=== PATIENT | female | born 2000 | race Caucasian/White ===

== ENCOUNTER → 2023-08-09 11:13 | Outpatient (REF) | payer OTHER, SELFPAY ==
[2023-08-16 11:59] LABS: 24 Hour Urine Total Volume Random mL; Creatinine, Urine per Volume 103 mg/dL; Iodine, Urine 66.2 ug/L (26.0-705.0); Iodine/Creatinine Ratio 64.3 ug/g CRT (35.0-540.0); Urine Collection Length Random hr
== END ==
LOC: HWLAB 11:13
PROVIDERS: ATTENDING PHYSICIAN Surgery; FAMILY PHYSICIAN Internal Medicine
DX: N63.21 Unspecified lump in the left breast, upper outer quadrant (principal)
CPT/HCPCS: 83018

== ENCOUNTER → 2023-08-21 08:45 | Outpatient (REF) | payer OTHER, SELFPAY | LOC: CLAB 08:45 | PROVIDERS: ATTENDING PHYSICIAN Surgery | DX: N63.21 Unspecified lump in the left breast, upper outer quadrant (principal) | CPT/HCPCS: 88305; 88307; 88342; 88360 ==

== ENCOUNTER → 2023-09-20 13:49 | Outpatient (REF) | payer OTHER, SELFPAY | LOC: WDC 13:49 | PROVIDERS: ATTENDING PHYSICIAN Surgery; FAMILY PHYSICIAN Internal Medicine | DX: N63.10 Unspecified lump in the right breast, unspecified quadrant (principal); N63.11 Unspecified lump in the right breast, upper outer quadrant | CPT/HCPCS: 76642 ==

== ENCOUNTER → 2023-10-29 07:44 | Outpatient (REF) | payer OTHER, SELFPAY | LOC: MRI 3T 07:44 | PROVIDERS: ATTENDING PHYSICIAN Surgery; FAMILY PHYSICIAN Internal Medicine | DX: D48.60 Neoplasm of uncertain behavior of unspecified breast (principal) | CPT/HCPCS: 77049; A9585 ==

== ENCOUNTER → 2023-12-05 14:49 | Outpatient (REF) | payer OTHER, SELFPAY | LOC: WDC 14:49 | PROVIDERS: ATTENDING PHYSICIAN Surgery; FAMILY PHYSICIAN Internal Medicine | DX: R92.8 Other abnormal and inconclusive findings on diagnostic imaging of breast (principal) | CPT/HCPCS: 76642 ==